=== PATIENT | female | born 1955 | race Caucasian/White ===

== ENCOUNTER 2016-07-28 23:00 | Emergency (ER) | payer OTHER ==
[2016-07-29 02:35] LABS: BASOPHILS 0.1 %; BASOPHILS ABSOLUTE 0.01 10/3/uL (0.0-0.16); EOSINOPHILS 4.3 %; EOSINOPHILS ABSOLUTE 0.32 10/3/uL (0.0-0.53); ER CBC TAT 0 Hrs 05 Mins; HEMATOCRIT 35.7 % (36.0-48.0); HEMOGLOBIN 11.9 g/dL (12.0-16.0); IMMATURE GRANULOCYTES 0.1 %; IMMATURE GRANULOCYTES ABSOLUTE 0.01 10/3/uL (0.0-0.11); LYMPHOCYTES 40.2 %; LYMPHOCYTES ABSOLUTE 2.99 10/3/uL (0.67-4.30); MANUAL DIFF NO %; MEAN CORPUS HGB CONC 33.3 g/dL (32.0-36.0); MEAN CORPUSCULAR HEMOGLOB 28.3 pg (26.0-34.0); MEAN CORPUSCULAR VOLUME 84.8 fL (80-100); MEAN PLATELET VOLUME 9.6 fL (9.2-13.0); MONOCYTES 10.2 %; MONOCYTES ABSOLUTE 0.76 10/3/uL (0.21-1.20); NEUTROPHILS 45.1 %; NEUTROPHILS ABSOLUTE 3.35 10/3/uL (2.02-8.40); PLATELET COUNT 197 10/3/uL (150-400); RBC DISTRIBUTION WIDTH 15.1 % (12.0-16.0); RED CELL COUNT 4.21 10/6/uL (4.0-5.6); WHITE BLOOD CELLS 7.4 10/3/uL (4.5-10.5)
[2016-07-29 02:37] LABS: ASCORBIC ACID (UR NOT ORDER) NEG (NEG); BILIRUBIN, URINE NEGATIVE (NEG); ER URINALYSIS TAT 0 Hrs 00 Mins; KETONE, URINE NEGATIVE (NEG); LEUKOCYTE ESTERASE(NOT OR NEG (NEG); NITRITE (URINE) NEG (NEG); WBC (NOT ORDERED) (RFLEX) 1 (0-5)
[2016-07-29 02:55] LABS: A/G RATIO 0.9 (0.7-1.9); ALBUMIN 3.6 G/DL (3.5-5.0); ALKALINE PHOSPHATASE 109 U/L (45-117); BUN (BLOOD UREA NITROGEN) 12 MG/DL (6-23); CALCIUM, SERUM 8.7 MG/DL (8.5-10.4); CHLORIDE, SERUM 113 MMOL/L (96-112); CO2 (CARBON DIOXIDE) 23 MMOL/L (24-34); CREATININE 0.79 MG/DL (0.55-1.02); GFR AFRICAN AMERICAN 94 ML/MIN (>=60); GFR NON AFRICAN AMERICAN 81 ML/MIN (>=60); GLUCOSE, SERUM 100 MG/DL (60-99); POTASSIUM, SERUM 3.6 MMOL/L (3.5-5.3); SGOT(AST) 26 U/L (5-40); SGPT(ALT) 34 U/L (5-65); SODIUM, SERUM 146 MMOL/L (135-148); TOTAL BILIRUBIN 0.4 MG/DL (0-1.2); TOTAL PROTEIN 7.4 G/DL (6.0-8.5)
[2016-07-29 02:56] LABS: GLOBULIN 3.8 G/DL (2.5-4.1)
[2016-10-27] MEDS ORDERED: XANAX2 MG PO (19:41)
[2016-10-27] MEDS ORDERED: MIRAPEX250 PO (19:42)
[2016-10-27] MEDS ORDERED: MIRAPEX5 PO (19:42)
[2016-10-27] MEDS ORDERED: CELEXA20 PO (19:43)
[2016-10-27] MEDS ORDERED: IMITREX100 MG PO (19:43)
[2016-10-27] MEDS ORDERED: ADIPEX-P37.5 M1 PO (19:43)
[2016-10-27] MEDS ORDERED: TOPAMAX25 PO (19:44)
[2016-10-27] MEDS ORDERED: AMOXIL500 MG PO (19:44)
[2016-10-27] MEDS ORDERED: SYMBICORT 80/4.1 INH INH (19:45)
[2016-10-27] MEDS ORDERED: DUONEB INH (19:45)
[2016-10-27] MEDS ORDERED: CHANTIX0.5 PO (19:46)
[2016-11-08] MEDS ORDERED: ASAB PO (10:43)
[2016-11-08] MEDS ORDERED: LIPITOR40 PO (10:43)
[2016-11-08] MEDS ORDERED: CORDARONE PO (10:44)
[2016-11-08] MEDS ORDERED: XARELTO20 MG PO (10:45)
[2016-11-08] MEDS ORDERED: SPIRIVA (10:46)
[2016-11-08] MEDS ORDERED: PROAM25 PO (10:48)
[2016-11-08] MEDS ORDERED: BUM5 PO (10:55)
[2016-12-20] MEDS ORDERED: COREG3 PO (15:37)
[2016-12-21] MEDS ORDERED: PRIN2.5 PO (18:18)
[2016-12-21] MEDS ORDERED: SPIRO25 PO (18:19)
[2017-01-01] MEDS ORDERED: COUMADIN4 MG PO (12:12)
[2017-01-01] MEDS ORDERED: STERAPRED5 MG PO (12:12)
[2017-01-01] MEDS ORDERED: ULTRAM50 PO (12:14)
== END 2016-07-29 03:47 | disposition home or self-care (01) ==
LOC: ER 23:00
PROVIDERS: Emergency Medicine
DX: R05 Cough (principal); R07.81 Pleurodynia; J44.9 Chronic obstructive pulmonary disease, unspecified; F17.200 Nicotine dependence, unspecified, uncomplicated; Z88.2 Allergy status to sulfonamides; Z88.5 Allergy status to narcotic agent; Z88.8 Allergy status to other drugs, medicaments and biological substances
CPT/HCPCS: 71020; 80053; 81001; 85025; 87040; 93005; 94640; 99284